=== PATIENT | female | born 1980 | race African-American/Black ===

== ENCOUNTER → 2017-10-27 | Outpatient (CLI) | payer OTHER ==
[2017-10-27 09:23] LABS: ABSOLUTE EOSINOPHILS # (AUTO) 0.1 10^3/uL (0.0-0.6); ABSOLUTE MONOCYTES (AUTO) 0.4 10^3/uL (0.1-1.4); ABSOLUTE NEUT (AUTO) 3.7 10^3/uL (1.7-8.2); BASOPHILS % (AUTO) 0.1 % (0-2); EOSINOPHILS % (AUTO) 1.6 % (0-6); HEMATOCRIT 34.6 % (36.0-47.0); HEMOGLOBIN 11.3 g/dL (12.0-15.5); LYMPHOCYTES % (AUTO) 32.3 % (13-45); MEAN CORPUSCULAR HEMOGLOBIN 27.4 pg (27.0-33.4); MEAN CORPUSCULAR HGB CONC 32.7 g/dL (32.0-36.0); MEAN CORPUSCULAR VOLUME 84 fl (80-97); MONOCYTES % (AUTO) 6.8 % (3-13); PLATELET COUNT 250 10^3/uL (150-450); RED BLOOD COUNT 4.13 10^6/uL (3.72-5.28); RED CELL DISTRIBUTION WIDTH 13.8 % (11.5-14.0); SEGMENTED NEUTROPHILS % (AUTO) 59.2 % (42-78); TOTAL CELLS COUNTED % (AUTO) 100 %; WHITE BLOOD COUNT 6.3 10^3/uL (4.0-10.5)
[2017-10-27 09:51] LABS: ALANINE AMINOTRANSFERASE 29 U/L (9-52); ALBUMIN 3.8 g/dL (3.5-5.0); ALKALINE PHOSPHATASE 60 U/L (38-126); ANION GAP 12 (5-19); ASPARTATE AMINO TRANSFERASE 18 U/L (14-36); BILIRUBIN,DIRECT 0.2 mg/dL (0.0-0.4); BILIRUBIN,TOTAL 0.4 mg/dL (0.2-1.3); BLOOD UREA NITROGEN 9 mg/dL (7-20); CARBON DIOXIDE 27 mmol/L (22-30); CHLORIDE 105 mmol/L (98-107); CHOLESTEROL 138.56 mg/dL (0-200); GLUCOSE 113 mg/dL (75-110); POTASSIUM 4.2 mmol/L (3.6-5.0); SODIUM 143.7 mmol/L (137-145); TOTAL PROTEIN 7.2 g/dL (6.3-8.2); TRIGLYCERIDES 114 mg/dL (<150)
[2017-10-27 10:02] LABS: DIRECT LDL 51 mg/dL (<100)
== END ==
LOC: CCC 08:20
DX: Z00.00 Encounter for general adult medical examination without abnormal findings (principal)
CPT/HCPCS: 36415; 80053; 80061; 83036; 84443; 85025

== ENCOUNTER → 2019-10-28 | Outpatient (CLI) | payer BC ==
[2019-10-28 14:52] LABS: ABSOLUTE EOSINOPHILS # (AUTO) 0.1 10^3/uL (0.0-0.6); ABSOLUTE LYMPHOCYTES (AUTO) 1.8 10^3/uL (0.5-4.7); ABSOLUTE MONOCYTES (AUTO) 0.4 10^3/uL (0.1-1.4); ABSOLUTE NEUT (AUTO) 2.6 10^3/uL (1.7-8.2); BASOPHILS % (AUTO) 0.6 % (0-2); EOSINOPHILS % (AUTO) 2.5 % (0-6); HEMATOCRIT 27.8 % (36.0-47.0); HEMOGLOBIN 8.2 g/dL (12.0-15.5); MEAN CORPUSCULAR HEMOGLOBIN 19.4 pg (27.0-33.4); MEAN CORPUSCULAR HGB CONC 29.6 g/dL (32.0-36.0); MEAN CORPUSCULAR VOLUME 65 fl (80-97); MONOCYTES % (AUTO) 8.8 % (3-13); PLATELET COUNT 328 10^3/uL (150-450); RED BLOOD COUNT 4.26 10^6/uL (3.72-5.28); SEGMENTED NEUTROPHILS % (AUTO) 52.1 % (42-78); TOTAL CELLS COUNTED % (AUTO) 100 %; WHITE BLOOD COUNT 4.9 10^3/uL (4.0-10.5)
== END ==
LOC: LAB 14:28
PROVIDERS: ATTEND Physician Assistant Medical
DX: D50.9 Iron deficiency anemia, unspecified (principal); D58.2 Other hemoglobinopathies; R79.0 Abnormal level of blood mineral
CPT/HCPCS: 36415; 82728; 85025

== ENCOUNTER 2019-11-23 10:02 | Outpatient (CLI) | payer BC ==
[2019-11-23 10:13] VITALS: BP 120/58
[2019-11-23] MEDS ORDERED: NORMAL SALINE 250 ML IV PRN (10:30)
[2019-11-23] MEDS ORDERED: FERUMOXYTOL 510 MG in NORMAL SALINE 100 ML IV PRN (10:30)
== END 2019-11-23 11:22 | disposition home or self-care (01) ==
LOC: II 10:02 → 5TH 10:07 → II 11:22
PROVIDERS: ATTEND Internal Medicine Hematology & Oncology
DX: D50.9 Iron deficiency anemia, unspecified (principal); K90.9 Intestinal malabsorption, unspecified
CPT/HCPCS: 96365; Q0138; J7050

== ENCOUNTER 2019-11-30 10:07 | Outpatient (CLI) | payer BC ==
[~2019-11-30 10:07] MED LIST: FERUMOXYTOL (NON-ESRD) 510 MG/NS 100 ML IV PRN; NORMAL SALINE 250 ML IV PRN
[2019-11-30 11:18] VITALS: BP 131/70
== END 2019-11-30 11:00 | disposition home or self-care (01) ==
LOC: II 10:07 → 5TH 10:09 → II 11:00
PROVIDERS: ATTEND Internal Medicine Hematology & Oncology
DX: D50.9 Iron deficiency anemia, unspecified (principal); K90.9 Intestinal malabsorption, unspecified
CPT/HCPCS: 96365; Q0138; J7050

== ENCOUNTER 2020-01-13 09:43 | Outpatient (CLI) | payer BC, OTHER ==
[2020-01-13] MEDS ORDERED: NORMAL SALINE 250 ML IV PRN (09:48)
[2020-01-13] MEDS ORDERED: FERUMOXYTOL (NON-ESRD) 510 MG/NS 100 ML IV PRN ×2 (09:49)
[2020-01-13 09:55] VITALS: BP 110/68
== END 2020-01-13 10:45 | disposition home or self-care (01) ==
LOC: II 09:43 → 5TH 09:46 → II 10:45
PROVIDERS: ATTEND Nurse Practitioner Family
DX: D50.9 Iron deficiency anemia, unspecified (principal); K90.9 Intestinal malabsorption, unspecified
CPT/HCPCS: 96365; Q0138; J7050

== ENCOUNTER 2020-01-20 09:58 | Outpatient (CLI) | payer BC, OTHER ==
[2020-01-20 10:22] VITALS: BP 121/61
== END 2020-01-20 10:56 | disposition home or self-care (01) ==
LOC: II 09:58 → 5TH 10:00 → II 10:56
PROVIDERS: ATTEND Nurse Practitioner Family
DX: D50.9 Iron deficiency anemia, unspecified (principal); K90.9 Intestinal malabsorption, unspecified
CPT/HCPCS: 96365; Q0138; J7050